=== PATIENT | female | born 1935 | race Caucasian/White ===

== ENCOUNTER → 2016-12-26 | Day surgery (SDC) | payer OTHER ==
[~2016-12-26] VITALS: Ht 160 cm; Wt 55.8 kg
[~2016-12-26] MED LIST: ACEPHEN650 MG PR; APAP325 MG PO; ASPIRIN EC325 MG PO; CALCIUM + D 6001 TAB PO; COUMADIN 1 MG TA1 MG PO; COUMADIN 5 MG TA5 MG PO; DOK100 M1 PO; ENALAPRIL20 MG PO; FLEET ENEMA 131 UNIT RC; GENTLE LAXATIVE10 MG PR; HYDRODIURIL 2525 MG PO; LEVOTHYROXINE25 MCG PO; MASON NATURAL325 MG PO; MILK OF MAGNESI30 ML PO; MIRALAX17 GM PO; MULTIVITAMIN1 TAB PO; NATURAL IRON65 MG PO; NORVASC5 M1 PO; PERCOCET 325 MG1 TA2 PO; SIMVASTATIN40 MG PO; TOPROL XL25 M1 PO; TRAMADOL50 MG PO; TRANDATE-NORMO200 MG PO; TYLENOL PM 5001 CAP PO; TYLENOL500 MG PO; XARELTO15 M1 PO; XARELTO20 MG PO
--- NOTE | 2016-12-26 10:02 | RADIOLOGY REPORT ---
EXAMINATION: XR PORTABLE CHEST CLINICAL INFORMATION: Status post bronchoscopy COMPARISON: 12/25/2016 TECHNIQUE: Portable frontal view of the chest was obtained. FINDINGS: Cardiac leads overlie the chest. The lungs are well expanded. Right hilar surgical clip. Increased opacity in the left midlung. Left apical pleural thickening. No pneumothorax. Mild increased interstitial markings diffusely. The cardiomediastinal silhouette is unchanged, with a calcified aorta. IMPRESSION: Increased interstitial markings could represent developing edema. Increased left midlung opacity. In the setting of recent biopsy, this may represent postbiopsy change.
--- NOTE | 2016-12-26 17:11 | Operative Report ---
Operative/Inv Procedure Report Surgery Date: 12/26/16 Name of Procedure: Navigational bronchoscopy with brushings bronchoalveolar lavage and forceps biopsy Pre-Operative Diagnosis: Left lung mass Post-Operative Diagnosis: Same Estimated Blood Loss: scant Surgeon/Operations Trainer: ELISEO PICKARD,LOPEZ Solo Anesthesia: general endotracheal tube Operative/Procedure Note Note: After placement of monitoring lines and induction of general anesthesia a survey bronchoscopy was performed. The endobronchial anatomy on the right was normal. The bronchial stump of the right upper lobe from the previous resection was visualized and showed no nodularity. On the left side there was significant mucosal changes at the distal left mainstem bronchus. The orifice to the upper and lower lobes were both significantly narrowed with significant mucosal changes with friable mucosa and evidence of edema and induration. The navigational system was then registered. The guider catheter was advanced to the left upper lobe nodular area. Brushings were taken and intraoperative rapid analysis showed atypical cells suspicious for cancer. Lude was sent for bronchoalveolar lavage and direct forceps biopsies were taken. The catheter was then brought back to the orifice of the left upper lobe and more brushings and direct biopsies were taken along with bronchoalveolar lavage fluid. The central lesion that was felt to be lymphadenopathy could not be visualized directly and there were concerns for possible pulmonary arterial injury so that proximal lesion was not biopsied. Epinephrine with lidocaine was used as a topical lavage and it allowed for very good hemostasis with no evidence of oozing or bleeding. The bronchoscope was withdrawn and the patient was extubated and brought to the recovery room in stable condition. CC: BERTRAND PICKARD,Darci ACOSTA
--- NOTE | 2016-12-27 09:03 | RADIOLOGY REPORT ---
EXAMINATION:\H\ \N\XR CHEST/INTRAOPERATIVE FLUOROSCOPY CLINICAL INFORMATION: Navigational bronchoscopy with biopsy. COMPARISON: Chest x-ray dated 12/26/2016. CT scan of the chest dated 12/11/2016. TECHNIQUE/FINDINGS: Fluoroscopy equipment was provided to the operating room for the performance of a navigational bronchoscopy with biopsy. 6 spot films were obtained and are archived in PACS. 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 FLUOROSCOPY TIME: 2.4 minutes. IMPRESSION: Administrative dictation for navigational bronchoscopy with biopsy.
== END ==
LOC: STS 01:47
DX: D38.1 Neoplasm of uncertain behavior of trachea, bronchus and lung (principal); Z85.118 Personal history of other malignant neoplasm of bronchus and lung; Z87.891 Personal history of nicotine dependence; I48.91 Unspecified atrial fibrillation; Z79.01 Long term (current) use of anticoagulants; Z86.718 Personal history of other venous thrombosis and embolism; I10 Essential (primary) hypertension
CPT/HCPCS: 88305; C9399; J0131; J2250